=== PATIENT | female | born 1945 ===

== ENCOUNTER 2018-10-17 06:25 | Day surgery (SDC) | payer MEDICARE ==
[2018-10-15 08:35] VITALS: BMI 21.9
[2018-10-17 07:13] LABS: BASO # 0.04 K/mm3 (0.0-2.0); BASO % 0.4 % (0.0-3.0); EOS # 0.3 (0.0-0.7); EOS % 2.7 % (1.5-5.0); HEMOGLOBIN 14.8 g/dL (12.0-16.0); LYMPH # 3.7 (1.2-3.4); LYMPH % 40.1 % (22.0-35.0); MEAN CELL VOLUME 89.3 fl (80.0-105.0); MEAN CORPUSCULAR HEMOGLOBIN 29.3 pg (25.0-35.0); MEAN CORPUSCULAR HGB CONC 32.8 g/dl (31.0-37.0); MEAN PLATELET VOLUME 11.3 fl (7.0-11.0); MONO # 0.6 (0.1-0.6); MONO % 6.3 % (1.0-6.0); RBC 5.05 10^6/uL (3.5-6.1); RED CELL DISTRIBUTION WIDTH 14.6 % (11.5-14.5); WHITE BLOOD COUNT 9.2 10^3/uL (4.5-11.0)
[2018-10-17 07:23] LABS: INR 1.03; PARTIAL THROMBOPLASTIN TIME 39.1 Seconds (26.9-38.3); PROTHROMBIN TIME 11.6 SECONDS (9.4-12.5)
[2018-10-17 07:31] LABS: BLOOD UREA NITROGEN 20 mg/dL (7-21); CALCIUM 9.3 mg/dL (8.4-10.5); GFR NON-AFRICAN AMERICAN > 60
[2018-10-17] MEDS ORDERED: Nitroglycerin 50mg in D5W 50 MG/250 ML BOTTLE IV ONE (08:46)
[2018-10-17] MEDS ORDERED: Lidocaine 2% Inj (20ml) ONE (08:46)
[2018-10-17] MEDS ORDERED: Iodixanol 320 MG/ML 200 ML BOTTLE IV ONE (08:46)
[2018-10-17] MEDS ORDERED: Verapamil 2 ML ONE (08:46)
[2018-10-17] MEDS ORDERED: Adenosine 90 mg/30mL IV ONE (08:47)
[2018-10-17] MEDS ORDERED: Midazolam 2 MG/2 ML VIAL ONE ×3 (09:07→09:31)
[2018-10-17] MEDS ORDERED: DiphenhydrAMINE 50 mg/ml Inj ONE ×2 (09:33→10:21)
[2018-10-17] MEDS ORDERED: Iodixanol 320 mg/ml 150 ml Bottle IV ONE (10:07)
--- NOTE | 2018-10-17 10:07 | CARD ---
APPROVED REPORT Date of service: 10/17/2018 EKG Measurement Heart [id number] <Conclusion> Sinus bradycardia Biatrial enlargement Baseline artifact limits accurate interpretation, needs repeat ECG Abnormal ECG
--- NOTE | 2018-10-17 17:06 | CARDCATH ---
PROCEDURE DATE: 10/17/2018 INDICATIONS: Risa Li is a 73-year-old female, who was referred to me for evaluation of an abnormal stress test. She has past medical history significant for hypertension, hypothyroidism, dyslipidemia, and prior history of CAD and stenting. The patient underwent a nuclear stress test at [facility], which showed perfusion abnormalities in multiple areas. She does also with past history of smoking. She was therefore brought to the laborer hoisting for evaluation and treatment of unstable angina and CAD. PROCEDURES PERFORMED: Left heart catheterization with selective left and right coronary angiogram via left radial arterial approach. PTCA stenting of proximal and mid RCA, deployment of 3.5 x 18 mm [place] drug-eluting stent in proximal RCA 90% occlusion reduced down to 0% CAMILLA 3 flow. PTCA stenting of mid RCA 80% occlusion with deployment of 3.0 x 15 Prashanth drug-eluting stent, regeneration from 80% down to 0% CAMILLA 3 flow, A 6-Maori left radial arterial access, wristband for hemostasis. ANGIOGRAPHIC FINDINGS: Left main is a large-sized vessel, only gives rise to left anterior descending artery. LAD has a proximal 80% stenosis of the diagonal, gives off two medium-sized diagonal branches. 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 RCA has proximal stent with a proximal 90% stenosis. Mid RCA has a 85% stenosis. Left circumflex comes off the right coronary cusp, which is anomalous in origin, runs through the groove in atrioventricular groove and then gives off obtuse marginal branch free of any obstructive disease. Left ventricular ejection fraction was about 45% to 50% with mild inferior basal hypokinesis. INTERVENTION: A JR4 guiding catheter was used to engage the right coronary system. Prowater wire was used across the lesion. The lesion was predilated with a 2.5 and a 3.0 balloon. The were fixed with a 3.0 balloon and multiple angioplasties and subsequently the proximal lesion was stented with a 3.5 x 18 Prashanth drug-eluting stent. The mid RCA lesion was subsequently fixed with a 3.0 x 15 Prashanth drug-eluting stent. Final angiogram done showed regeneration down to 0% CAMILLA-3 flow. 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 RECOMMENDATIONS: The patient can be discharged home in 3 hours. The patient is to continue on dual-antiplatelet therapy. We will initiate the patient on Brilinta, load her with 180 mg today and continue on 90 mg b.i.d. Continue the patient on aspirin. We will resume her home medications including the beta-beatris, hydrochlorothiazide, and Crestor. The patient is to undergo stage intervention of the LAD in 1 week's time. The decision to proceed the angioplasty and stenting was done after face-timing with Dr. Ganesh Ventura and reviewing the angiograms adopting two heart team approach as per the ACC/AHA guidelines. Thank you Dr. Espinal for letting me participate in the care of your patient. Jensen Cabrera MD cc: Dahiana Espinal MD
[2018-10-17] MEDS: Sodium Chloride 0.9% 1,000 ML IV SCH (21:31)
[2018-10-18] MEDS: Sodium Chloride 0.9% 1,000 ML IV SCH (02:00)
[2018-10-18 05:37] VITALS: TEMP 97.8; O2SAT 96
--- NOTE | 2018-10-18 11:23 | US ---
PROCEDURE: Right upper extremity venous US CLINICAL HISTORY: Arm pain and swelling Evaluate for deep venous thrombosis. PHYSICIAN(S): Francis Jamison M.D FINDINGS: The visualized rightinternal jugular vein is sonographically normal and compressible. No evidence of obstruction or thrombus is seen. The visualized segments of the right subclavian vein are patent with normal waveforms. No sonographic evidence of obstruction or thrombosis is seen. The visualized deep venous system of the proximal right upper extremity is sonographically normal and compressible. IMPRESSION: 1. No sonographic evidence for deep venous thrombosis in the visualized segments of the right upper extremity.
[2018-10-18 12:09] VITALS: BP 128/69; PULSE 70; RESP 18
== END 2018-10-18 18:09 | disposition home or self-care (01) ==
LOC: CATH 06:25 → 2RSO 11:25 → CATH 10-18 18:09
PROVIDERS: ATTEND Internal Medicine Interventional Cardiology
DX: I25.110 Atherosclerotic heart disease of native coronary artery with unstable angina pectoris (principal); Z95.5 Presence of coronary angioplasty implant and graft; I10 Essential (primary) hypertension; E03.9 Hypothyroidism, unspecified; E78.5 Hyperlipidemia, unspecified; Z87.891 Personal history of nicotine dependence
CPT/HCPCS: 36415; 80048; 83036; 85025; 85610; 85730; 86850; 86900; 93005; 93458; 93971; 99152; 99153; C1725 ×2; C1769 ×2; C1874 ×2; C1887 ×4; C1894; C9600; J0153; J1200; J1644 ×2; J2250; J3010; J7030 ×2; Q9966; Q9967

== ENCOUNTER 2018-10-23 18:41 | Emergency (ER) | payer MEDICARE ==
[2018-10-23 19:26] VITALS: BP 140/74; PULSE 72; RESP 18; TEMP 98.1; O2SAT 95
[2018-10-23 19:28] VITALS: BMI 21.4
--- NOTE | 2018-10-23 20:49 | ED PDOC ---
Arrival/HPI - General Chief Complaint: Abnormal Skin Integrity Historian: Patient - History of Present Illness Narrative History of Present Illness (Text): 10/23/18 20:46 73 year old female s/p PTCA with stent [place] Cabrera [place] [facility] [place] department with persistent right arm discoloration/bruising since cath procedure. Patient reports that it's getting better with time but she is not taking ibuprofen as it makes her sleep. Patient denies fever, chills, muscle weakness, numbness/tingling, change in temperature, tight skin or increased swelling of the area. Arm ultrasound was done before patient's discharge that was negative. She is scheduled to see Dr Cabrera again on 10/26. Time/Duration: < week Symptom Onset: Gradual Symptom Course: Improving Quality: Aching Severity Level: 7 Activities at Onset: Light Context: Exertion Past Medical History - Provider Review Nursing Documentation Reviewed: Yes - Travel History Have you recently traveled outside [place] w/in the past 3 mons?: No - Infectious Disease Hx of Infectious Diseases: None - Cardiac Hx Cardiac Disorders: No - Pulmonary Hx Respiratory Disorders: No - Neurological Hx Neurological Disorder: No - HEENT Hx HEENT Disorder: No - Renal Hx Renal Disorder: No - Endocrine/Metabolic Hx Endocrine Disorders: Yes Hx Hypothyroidism: Yes - Hematological/Oncological Hx Blood Disorders: No - Integumentary Hx Dermatological Disorder: No - Musculoskeletal/Rheumatological Hx Musculoskeletal Disorders: No - Gastrointestinal Hx Gastrointestinal Disorders: No - Genitourinary/Gynecological Hx Genitourinary Disorders: No - Psychiatric Hx Psychophysiologic Disorder: No Hx Substance Use: No - Surgical History Hx Cardiac Catheterization: Yes (5 stents) - Anesthesia Hx Anesthesia Reactions: No Hx Malignant Hyperthermia: No - Suicidal Assessment Feels Threatened In Home Enviroment: No Family/Social History - Physician Review Nursing Documentation Reviewed: Yes Family/Social History: No Known Family HX Smoking Status: Never Smoked Hx Alcohol Use: No Hx Substance Use: No Allergies/Home Meds Allergies/Adverse Reactions: Allergies No Known Allergies Allergy (Verified 10/23/18 19:27) Home Medications: Home Meds Medication Instructions Recorded Confirmed Aspirin [Ecotrin] 81 mg PO DAILY 03/20/17 10/18/18 Dexlansoprazole [Dexilant] 60 mg PO DAILY 03/20/17 10/17/18 Levothyroxine [Synthroid] 88 mcg PO DAILY 03/20/17 10/17/18 Metoprolol Tartrate [Lopressor] 25 mg PO DAILY 03/20/17 10/17/18 Rosuvastatin Calcium 10 mg PO DAILY 03/20/17 10/17/18 Hydrochlorothiazide [Microzide] 25 mg PO DAILY 10/15/18 10/17/18 Mv-Min/Folic/Vit K/Lycop/Coq10 1 each PO DAILY 10/15/18 10/17/18 [Daily Multivitamin Capsule] Vortioxetine Hydrobromide 10 mg PO DAILY 10/15/18 10/17/18 [Trintellix] Review of Systems - Review of Systems Constitutional: Normal Eyes: Normal ENT: Normal Respiratory: Normal. absent: SOB, Cough Cardiovascular: Normal. absent: Chest Pain, Palpitations Gastrointestinal: Normal. absent: Abdominal Pain, Diarrhea, Nausea Genitourinary Female: Normal Musculoskeletal: Other (right arm swelling/bruising) Skin: Skin Lesions Neurological: Normal. absent: Headache, Dizziness, Focal Weakness Endocrine: Normal Hemo/Lymphatic: Normal Psychiatric: Normal Physical Exam Vital Signs Reviewed: Yes Vital Signs Temp Pulse Resp BP Pulse Ox 10/23/18 19:25 98.1 F 72 18 140/74 95 Temperature: Afebrile Blood Pressure: Normal Pulse: Regular Respiratory Rate: Normal Appearance: Positive for: Well-Appearing, Non-Toxic, Comfortable Pain Distress: None Mental Status: Positive for: Alert and Oriented X 3 - Systems Exam Head: Present: Atraumatic, Normocephalic Pupils: Present: PERRL Extroacular Muscles: Present: EOMI Conjunctiva: Present: Normal Mouth: Present: Moist Mucous Membranes Pharnyx: Present: Normal Nose (External): Present: Atraumatic Neck: Present: Normal Range of Motion. No: JVD, Lymphadenopathy Respiratory/Chest: Present: Clear to Auscultation, Good Air Exchange. No: Respiratory Distress, Wheezes, Rhonchi Cardiovascular: Present: Regular Rate and Rhythm, Normal S1, S2. No: Murmurs, Rub, Gallop Abdomen: Present: Normal Bowel Sounds. No: Tenderness, Distention Upper Extremity: Present: Edema (mild arm edema), NORMAL PULSES, Tenderness, Swelling, Neurovascularly Intact, Norm 2-Pt Discrimination, Other (diffuse ecchymosis of right arm, no open wound, no skin tightness, motor/senseory/vascular intact). No: Temperature Abnormalties Lower Extremity: Present: Capillary Refill < 2 s Neurological: Present: GCS=15, CN II-XII Intact Skin: Present: Other (ecchymosis of right arm) Psychiatric: Present: Alert, Oriented x 3, Normal Insight, Normal Concentration Disposition/Present on Arrival - Present on Arrival Any Indicators Present on Arrival: Yes History of DVT/PE: No History of Uncontrolled Diabetes: No Urinary Catheter: No History of Decub. Ulcer: No History Surgical Site Infection Following: None - Disposition Have Diagnosis and Disposition been Completed?: Yes Diagnosis: Traumatic ecchymosis of upper arm Disposition: HOME/ ROUTINE Disposition Time: 21:12 Patient Plan: Discharge Patient Problems: Current Active Problems Problem Status Onset Traumatic ecchymosis of upper arm Acute Condition: STABLE Additional Instructions: Please take pain medication ibuprofen or tylenol to control your pain, rest and elevate your right arm, apply cold compressions. Follow up with your protection officer Dr Cabrera for future appointment Follow up with your primary care physician Referrals: Radha Mckeon PA [Primary Care Provider] - Follow up with primary Forms: [employer] (Japanese)
== END 2018-10-23 21:27 | disposition home or self-care (01) ==
LOC: ED 18:41
DX: S40.021A Contusion of right upper arm, initial encounter (principal); Y84.8 Other medical procedures as the cause of abnormal reaction of the patient, or of later complication, without mention of misadventure at the time of the procedure; Y92.89 Other specified places as the place of occurrence of the external cause